=== PATIENT | female | born 1975 | race African-American/Black ===

== ENCOUNTER 2017-09-02 13:35 | Emergency (ER) | payer SELFPAY ==
[~2017-09-02] VITALS: Ht 162.6 cm; Wt 67.0 kg
[2017-09-02 13:37] VITALS: BP 113/71
== END 2017-09-02 18:52 | disposition left against medical advice (07) ==
LOC: ER 13:35
DX: M54.9 Dorsalgia, unspecified (principal); Z53.21 Procedure and treatment not carried out due to patient leaving prior to being seen by health care provider

== ENCOUNTER 2020-05-20 12:06 | Emergency (ER) | payer MEDICAID ==
[~2020-05-20] VITALS: Ht 162.6 cm; Wt 59.0 kg
[2020-05-20] MEDS ORDERED: SODIUM CHLORIDE 0.9% 1,000 ML IV ONE (12:49)
[2020-05-20 13:49] VITALS: BP 128/75
[2020-05-20 14:00] LABS: BASOPHILS % 1.1 % (0.0-2.0); EOSINOPHILS % 0.7 % (0.0-5.0); HEMATOCRIT. 40.3 % (36.0-48.0); HEMOGLOBIN. 13.5 g/dL (12.0-16.0); LYMPHOCYTES % 23.9 % (20.0-50.0); MEAN CORPUSCULAR HEMOGLOBIN 30.5 pg (28.0-32.0); MEAN CORPUSCULAR VOLUME 91.2 fL (81.0-99.0); MEAN PLATELET VOLUME 10.2 fl (7.4-10.4); MONOCYTES % 4.4 % (2.0-8.0); NEUTROPHILS % 69.9 % (40.0-76.0); PLATELET 270 x1000/uL (130-400); RED BLOOD CELL COUNT 4.42 mill/uL (4.2-5.4); RED CELL DISTRIBUTION WIDTH 14.6 % (11.6-14.6)
[2020-05-20 14:03] LABS: CHLORIDE 108 mEq/L (98-107)
[2020-05-20 14:06] LABS: HCG SCREEN NEGATIVE
[2020-05-20 14:07] LABS: CLARITY URINE CLEAR (CLEAR); COLOR URINE YELLOW (YELLOW); KETONES URINE NEGATIVE (NEGATIVE); LEUKOCYTE ESTERASE URINE NEGATIVE (NEGATIVE); NITRITE URINE NEGATIVE (NEGATIVE); OCCULT BLOOD URINE 3+ (NEGATIVE); PH URINE 7.5 (4.5-8.0); PROTEIN URINE NEGATIVE (NEGATIVE); SPECIFIC GRAVITY URINE 1.007 (1.005-1.030); UROBILINOGEN URINE 0.2 E.U./dL (0.2-1.0)
== END 2020-05-20 13:52 | disposition home or self-care (01) ==
LOC: ER 12:06
DX: R55 Syncope and collapse (principal); R53.1 Weakness; R51 Headache; D64.9 Anemia, unspecified
CPT/HCPCS: 36415; 80053; 81003; 84484; 84703; 85025; 86850; 86900; 86901; 93005; 99284; J7030; 99285

== ENCOUNTER 2020-05-21 04:26 | Emergency (ER) | payer MEDICAID ==
[~2020-05-21] VITALS: Ht 160 cm; Wt 64.0 kg
[2020-05-21 04:33] VITALS: BP 121/78
== END 2020-05-21 05:03 | disposition left against medical advice (07) ==
LOC: ER 04:26
DX: Z53.21 Procedure and treatment not carried out due to patient leaving prior to being seen by health care provider (principal)

== ENCOUNTER 2020-05-21 22:18 | Emergency (ER) | payer MEDICAID ==
[~2020-05-21] VITALS: Ht 162.6 cm; Wt 66.4 kg
[2020-05-22] MEDS ORDERED: DIPHENHYDRAMINE 25MG CAPSULE PO ONE
[2020-05-22] MEDS ORDERED: PREDNISONE 20MG TABLET PO ONE
[2020-05-22] MEDS ORDERED: FAMOTIDINE 20MG TABLET PO ONE
[2020-05-22 00:29] VITALS: BP 104/75
== END 2020-05-22 00:30 | disposition home or self-care (01) ==
LOC: ER 22:18
DX: T78.40XA Allergy, unspecified, initial encounter (principal); X58.XXXA Exposure to other specified factors, initial encounter; F17.200 Nicotine dependence, unspecified, uncomplicated
CPT/HCPCS: 99284; J7512; Q0163

== ENCOUNTER 2020-05-29 07:12 | Emergency (ER) | payer MEDICAID ==
[~2020-05-29] VITALS: Ht 160 cm; Wt 62.0 kg
[2020-05-29] MEDS ORDERED: SODIUM CHLORIDE 0.9% 1,000 ML IV ONE (07:55)
[2020-05-29] MEDS ORDERED: ONDANSETRON HCL 4MG/2ML INJ IV STA (07:55)
[2020-05-29] MEDS ORDERED: KETOROLAC 30MG/ML VIAL IV ONE (08:00)
[2020-05-29 08:34] LABS: BASOPHILS % 0.8 % (0.0-2.0); CLARITY URINE CLEAR (CLEAR); COLOR URINE YELLOW (YELLOW); EOSINOPHILS % 1.2 % (0.0-5.0); HEMATOCRIT. 43.2 % (36.0-48.0); HEMOGLOBIN. 14.6 g/dL (12.0-16.0); KETONES URINE NEGATIVE (NEGATIVE); LEUKOCYTE ESTERASE URINE NEGATIVE (NEGATIVE); LYMPHOCYTES % 39.3 % (20.0-50.0); MEAN CORPUSCULAR HEMOGLOBIN 30.7 pg (28.0-32.0); MEAN CORPUSCULAR VOLUME 90.7 fL (81.0-99.0); MEAN PLATELET VOLUME 9.7 fl (7.4-10.4); MONOCYTES % 4.6 % (2.0-8.0); NEUTROPHILS % 54.1 % (40.0-76.0); NITRITE URINE NEGATIVE (NEGATIVE); OCCULT BLOOD URINE TRACE (NEGATIVE); PLATELET 358 x1000/uL (130-400); PROTEIN URINE NEGATIVE (NEGATIVE); RED BLOOD CELL COUNT 4.77 mill/uL (4.2-5.4); RED CELL DISTRIBUTION WIDTH 14.5 % (11.6-14.6); SPECIFIC GRAVITY URINE 1.016 (1.005-1.030); UROBILINOGEN URINE 0.2 E.U./dL (0.2-1.0)
[2020-05-29 08:50] LABS: CHLORIDE 104 mEq/L (98-107)
[2020-05-29 09:00] LABS: HCG SCREEN NEGATIVE
[2020-05-29] MEDS ORDERED: ACETAMINOPHEN WITH CODEINE 300/30MG TABLET PO ONE (09:30)
[2020-05-29 11:02] VITALS: BP 122/78
== END 2020-05-29 11:04 | disposition home or self-care (01) ==
LOC: ER 07:12
DX: R42 Dizziness and giddiness (principal); R53.1 Weakness; Z20.828 Contact with and (suspected) exposure to other viral communicable diseases
CPT/HCPCS: 36415; 70450; 71045; 80053; 81003; 81025; 84703; 85025; 93005; 96361; 96374; 96375; 99285; C9803; J1885; J2405; J7030; U0003

== ENCOUNTER 2020-06-17 20:02 | Inpatient (IN) | payer MEDICAID ==
[~2020-06-17] VITALS: Ht 160 cm; Wt 69.9 kg
[2020-06-17] MEDS ORDERED: ASPIRIN 81MG TABLET PO ONE (21:45)
[2020-06-17 22:02] LABS: EOSINOPHILS % 1.8 % (0.0-5.0); HEMOGLOBIN. 13.2 g/dL (12.0-16.0); LYMPHOCYTES % 49.1 % (20.0-50.0); MEAN CORPUSCULAR HEMOGLOBIN 30.2 pg (28.0-32.0); MEAN CORPUSCULAR VOLUME 89.5 fL (81.0-99.0); MEAN PLATELET VOLUME 8.8 fl (7.4-10.4); MONOCYTES % 5.7 % (2.0-8.0); NEUTROPHILS % 42.4 % (40.0-76.0); PLATELET 354 x1000/uL (130-400); RED BLOOD CELL COUNT 4.36 mill/uL (4.2-5.4); RED CELL DISTRIBUTION WIDTH 14.9 % (11.6-14.6)
[2020-06-17 22:07] LABS: CHLORIDE 105 mEq/L (98-107)
[2020-06-17 22:10] LABS: HCG SCREEN NEGATIVE
[2020-06-17 22:11] LABS: D-DIMER 0.57 mg/L FEU (<0.50); INR 0.9; PARTIAL THROMBOPLASTIN TIME 27.2 sec (23.4-31.0)
[2020-06-17] MEDS ORDERED: ACETAMINOPHEN 325MG TABLET PO ONE (22:15)
[2020-06-17] MEDS ORDERED: IOHEXOL-350 100 ML BOTTLE ONE (23:14)
[2020-06-17] MEDS ORDERED: AMPICILLIN SOD/SULBACTAM NA 3 G in SODIUM CHLORIDE 0.9% 100 ML IV STA (23:16)
[2020-06-18] VITALS (8 sets, daily range): BP systolic 100–143; BP diastolic 58–80
[2020-06-18] MEDS ORDERED: SODIUM CHLORIDE 0.9% 1,000 ML IV ONE (00:12)
[2020-06-18] MEDS ORDERED: DOCUSATE SODIUM 100MG CAPSULE PO PRN (04:30)
[2020-06-18] MEDS ORDERED: GUAIFENESIN 200MG/10ML SUGAR FREE UDC PO PRN (04:30)
[2020-06-18] MEDS ORDERED: ONDANSETRON HCL 4MG/2ML INJ IV PRN (04:30)
[2020-06-18] MEDS ORDERED: MAGNESIUM/ALUMINUM HYDROXIDE/SIMETHICONE 30ML UDC PO PRN (04:30)
[2020-06-18] MEDS ORDERED: HYDROCODONE/ACETAMINOPHEN 5/325MG TABLET PO PRN (04:30)
[2020-06-18] MEDS ORDERED: CLONIDINE 0.1MG TABLET PO PRN (04:30)
[2020-06-18 08:15] LABS: CREATINE KINASE 46 IU/L (26-192); CREATINE KINASE MB FRACTION < 1.0 ng/mL (0.5-3.6)
[2020-06-18] MEDS: METOPROLOL TARTRATE 25MG TABLET PO SCH ×2 (09:00→20:49)
[2020-06-18] MEDS: ASPIRIN 81MG EC TABLET PO SCH (09:08)
[2020-06-18] MEDS: ENOXAPARIN 40MG/0.4ML SYR SUBCUT SCH (10:57)
[2020-06-18 13:09] LABS: T4 FREE 1.05 ng/dL (0.76-1.46)
[2020-06-18 15:44] LABS: CREATINE KINASE 46 IU/L (26-192); CREATINE KINASE MB FRACTION < 1.0 ng/mL (0.5-3.6)
[2020-06-19] VITALS (9 sets, daily range): BP systolic 95–114; BP diastolic 58–77
[2020-06-19 06:58] LABS: BASOPHILS % 0.7 % (0.0-2.0); EOSINOPHILS % 1.5 % (0.0-5.0); HEMATOCRIT. 35.8 % (36.0-48.0); LYMPHOCYTES % 42.1 % (20.0-50.0); MEAN CORPUSCULAR HEMOGLOBIN 30.3 pg (28.0-32.0); MEAN CORPUSCULAR VOLUME 90.2 fL (81.0-99.0); MEAN PLATELET VOLUME 8.7 fl (7.4-10.4); MONOCYTES % 7.5 % (2.0-8.0); NEUTROPHILS % 48.2 % (40.0-76.0); PLATELET 317 x1000/uL (130-400); RED BLOOD CELL COUNT 3.97 mill/uL (4.2-5.4); RED CELL DISTRIBUTION WIDTH 14.6 % (11.6-14.6)
[2020-06-19 07:19] LABS: CHLORIDE 108 mEq/L (98-107)
[2020-06-19 07:35] LABS: LDL CHOLESTEROL 166 mg/dL (5-100)
[2020-06-19 07:37] LABS: HDL CHOLESTEROL 50 mg/dL (40-59)
[2020-06-19] MEDS: METOPROLOL TARTRATE 25MG TABLET PO SCH (09:00)
[2020-06-19] MEDS: ASPIRIN 81MG EC TABLET PO SCH (09:25)
[2020-06-19] MEDS: ENOXAPARIN 40MG/0.4ML SYR SUBCUT SCH ×2 (09:28→09:34)
[2020-06-19] MEDS ORDERED: ATORVASTATIN CALCIUM 40MG TABLET PO SCH (21:00)
== END 2020-06-19 15:03 | disposition home or self-care (01) | DRG 207 ==
LOC: ER 20:02 → MICUSO 23:34 → 3WST 06-18 09:26
PROVIDERS: ADMIT Hospitalist; ATTEND Hospitalist
DX: R00.2 Palpitations (principal); R53.1 Weakness; E78.5 Hyperlipidemia, unspecified; F17.200 Nicotine dependence, unspecified, uncomplicated; R07.89 Other chest pain; E78.41 Elevated Lipoprotein(a)
CPT/HCPCS: 36415; 71045; 71275; 80053; 80061; 82550; 82553; 83036; 83880; 84439; 84443; 84484; 84703; 85025; 85379; 93005; 93306; 93970; 99285; J0295; J1650; J7030; J7050; Q9967

== ENCOUNTER 2020-08-11 12:28 | Emergency (ER) | payer MEDICAID ==
[~2020-08-11] VITALS: Ht 160 cm; Wt 66.0 kg
[2020-08-11 14:00] LABS: BASOPHILS % 1.1 % (0.0-2.0); EOSINOPHILS % 1.5 % (0.0-5.0); HEMATOCRIT. 39.5 % (36.0-48.0); HEMOGLOBIN. 13.3 g/dL (12.0-16.0); MEAN CORPUSCULAR HEMOGLOBIN 30.6 pg (28.0-32.0); MEAN PLATELET VOLUME 9.7 fl (7.4-10.4); MONOCYTES % 4.5 % (2.0-8.0); NEUTROPHILS % 44.9 % (40.0-76.0); PLATELET 284 x1000/uL (130-400); RED BLOOD CELL COUNT 4.34 mill/uL (4.2-5.4); RED CELL DISTRIBUTION WIDTH 14.3 % (11.6-14.6)
[2020-08-11 14:03] LABS: CHLORIDE 105 mEq/L (98-107)
[2020-08-11] MEDS ORDERED: IBUPROFEN 400MG TABLET PO ONE (15:00)
[2020-08-11 15:04] VITALS: BP 121/71
== END 2020-08-11 16:43 | disposition home or self-care (01) ==
LOC: ER 12:59
DX: R53.1 Weakness (principal); E78.00 Pure hypercholesterolemia, unspecified
CPT/HCPCS: 36415; 71045; 80053; 81025; 82550; 83880; 84443; 84484; 85025; 93005; 99285

== ENCOUNTER 2020-11-12 15:04 | Emergency (ER) | payer MEDICAID ==
[~2020-11-12] VITALS: Ht 162.6 cm; Wt 74.0 kg
[2020-11-12] MEDS ORDERED: ACETAMINOPHEN 325MG TABLET PO ONE (19:45)
[2020-11-13 01:24] LABS: CHLORIDE 103 mEq/L (98-107)
[2020-11-13 01:28] LABS: PROTHROMBIN TIME 10.6 sec (9.6-11.0)
[2020-11-13 01:34] LABS: BASOPHILS % 0.9 % (0.0-2.0); EOSINOPHILS % 2.1 % (0.0-5.0); HEMATOCRIT. 40.7 % (36.0-48.0); HEMOGLOBIN. 13.4 g/dL (12.0-16.0); LYMPHOCYTES % 47.2 % (20.0-50.0); MEAN CORPUSCULAR HEMOGLOBIN 29.3 pg (28.0-32.0); MEAN CORPUSCULAR VOLUME 89.1 fL (81.0-99.0); MEAN PLATELET VOLUME 9.7 fl (7.4-10.4); MONOCYTES % 6.6 % (2.0-8.0); NEUTROPHILS % 43.2 % (40.0-76.0); PLATELET 304 x1000/uL (130-400); RED BLOOD CELL COUNT 4.56 mill/uL (4.2-5.4); RED CELL DISTRIBUTION WIDTH 13.8 % (11.6-14.6)
[2020-11-13 04:48] LABS: CLARITY URINE CLEAR (CLEAR); COLOR URINE YELLOW (YELLOW); KETONES URINE NEGATIVE (NEGATIVE); LEUKOCYTE ESTERASE URINE NEGATIVE (NEGATIVE); NITRITE URINE NEGATIVE (NEGATIVE); OCCULT BLOOD URINE NEGATIVE (NEGATIVE); PROTEIN URINE NEGATIVE (NEGATIVE); SPECIFIC GRAVITY URINE 1.019 (1.005-1.030)
[2020-11-13 05:46] VITALS: BP 120/80
== END 2020-11-13 05:48 | disposition home or self-care (01) ==
LOC: ER 15:04
DX: K59.00 Constipation, unspecified (principal)
CPT/HCPCS: 36415; 80053; 81003; 85025; 93005; 99284

== ENCOUNTER 2020-12-20 18:18 | Emergency (ER) | payer MEDICAID ==
[~2020-12-20] VITALS: Ht 160 cm; Wt 72.0 kg
[2020-12-20 18:31] VITALS: BP 150/78
[2020-12-20] MEDS ORDERED: VISCOUS LIDOCAINE 2% 15 ML UDC PO ONE (20:00)
[2020-12-20] MEDS ORDERED: MAGNESIUM/ALUMINUM HYDROXIDE/SIMETHICONE 30ML UDC PO ONE (20:00)
[2020-12-20 20:43] LABS: BASOPHILS % 1.4 % (0.0-2.0); EOSINOPHILS % 3.2 % (0.0-5.0); HEMATOCRIT. 39.1 % (36.0-48.0); LYMPHOCYTES % 55.3 % (20.0-50.0); MEAN CORPUSCULAR HEMOGLOBIN 29.3 pg (28.0-32.0); MEAN PLATELET VOLUME 9.6 fl (7.4-10.4); MONOCYTES % 6.7 % (2.0-8.0); NEUTROPHILS % 33.4 % (40.0-76.0); PLATELET 325 x1000/uL (130-400); RED BLOOD CELL COUNT 4.44 mill/uL (4.2-5.4); RED CELL DISTRIBUTION WIDTH 13.8 % (11.6-14.6)
[2020-12-20 20:47] LABS: CHLORIDE 109 mEq/L (98-107)
[2020-12-20] MEDS ORDERED: FAMO-135 MT (21:24)
== END 2020-12-20 21:40 | disposition home or self-care (01) ==
LOC: ER 18:27
DX: K21.9 Gastro-esophageal reflux disease without esophagitis (principal); R07.89 Other chest pain; E78.00 Pure hypercholesterolemia, unspecified
CPT/HCPCS: 36415; 71045; 80053; 84484; 85025; 93005; 99285

== ENCOUNTER 2021-02-01 16:11 | Emergency (ER) | payer MEDICAID ==
[~2021-02-01] VITALS: Ht 160 cm; Wt 72.0 kg
[~2021-02-01 16:11] MED LIST: FAMO-135 MT
[2021-02-01] MEDS ORDERED: MAGNESIUM/ALUMINUM HYDROXIDE/SIMETHICONE 30ML UDC PO NR (17:30)
[2021-02-01] MEDS ORDERED: VISCOUS LIDOCAINE 2% 15 ML UDC PO NR (17:30)
[2021-02-01 18:34] LABS: BASOPHILS % 1.3 % (0.0-2.0); HEMATOCRIT. 40.9 % (36.0-48.0); HEMOGLOBIN. 13.3 g/dL (12.0-16.0); LYMPHOCYTES % 53.4 % (20.0-50.0); MEAN CORPUSCULAR VOLUME 86.2 fL (81.0-99.0); MEAN PLATELET VOLUME 9.7 fl (7.4-10.4); MONOCYTES % 5.8 % (2.0-8.0); NEUTROPHILS % 37.5 % (40.0-76.0); PLATELET 302 x1000/uL (130-400); RED BLOOD CELL COUNT 4.75 mill/uL (4.2-5.4); RED CELL DISTRIBUTION WIDTH 14.4 % (11.6-14.6)
[2021-02-01 18:43] LABS: HCG SCREEN NEGATIVE
[2021-02-01 18:44] LABS: CHLORIDE 104 mEq/L (98-107)
[2021-02-01] MEDS ORDERED: OMEP20CA14 MT (19:41)
[2021-02-01 19:46] VITALS: BP 113/62
== END 2021-02-01 20:14 | disposition home or self-care (01) ==
LOC: ER 16:11
DX: R07.89 Other chest pain (principal); K21.9 Gastro-esophageal reflux disease without esophagitis; E78.00 Pure hypercholesterolemia, unspecified; F17.290 Nicotine dependence, other tobacco product, uncomplicated
CPT/HCPCS: 36415; 76705; 80053; 84703; 85025; 93005; 99285

== ENCOUNTER 2021-02-25 11:08 | Emergency (ER) | payer MEDICAID ==
[~2021-02-25] VITALS: Ht 160 cm; Wt 58.0 kg
[~2021-02-25 11:08] MED LIST changes: +OMEP20CA14 MT
[2021-02-25 12:20] LABS: CLARITY URINE CLEAR (CLEAR); COLOR URINE YELLOW (YELLOW); KETONES URINE NEGATIVE (NEGATIVE); LEUKOCYTE ESTERASE URINE NEGATIVE (NEGATIVE); NITRITE URINE NEGATIVE (NEGATIVE); OCCULT BLOOD URINE NEGATIVE (NEGATIVE); PH URINE 6.5 (4.5-8.0); PROTEIN URINE NEGATIVE (NEGATIVE); SPECIFIC GRAVITY URINE 1.007 (1.005-1.030); UROBILINOGEN URINE 0.2 E.U./dL (0.2-1.0)
[2021-02-25 12:36] LABS: BASOPHILS % 0.7 % (0.0-2.0); EOSINOPHILS % 1.5 % (0.0-5.0); HEMATOCRIT. 35.9 % (36.0-48.0); HEMOGLOBIN. 12.1 g/dL (12.0-16.0); LYMPHOCYTES % 37.3 % (20.0-50.0); MEAN CORPUSCULAR HEMOGLOBIN 29.2 pg (28.0-32.0); MEAN CORPUSCULAR VOLUME 86.5 fL (81.0-99.0); MEAN PLATELET VOLUME 8.9 fl (7.4-10.4); MONOCYTES % 4.8 % (2.0-8.0); NEUTROPHILS % 55.7 % (40.0-76.0); PLATELET 360 x1000/uL (130-400); RED BLOOD CELL COUNT 4.15 mill/uL (4.2-5.4)
[2021-02-25 12:42] LABS: CHLORIDE 105 mEq/L (98-107)
[2021-02-25] MEDS ORDERED: GABA-529 MT (13:29)
[2021-02-25 14:09] VITALS: BP 108/63
== END 2021-02-25 14:11 | disposition home or self-care (01) ==
LOC: ER 11:08
DX: M79.10 Myalgia, unspecified site (principal); K21.9 Gastro-esophageal reflux disease without esophagitis; E78.00 Pure hypercholesterolemia, unspecified
CPT/HCPCS: 36415; 80053; 81003; 81025; 84443; 85025; 93005; 99284; Z7610

== ENCOUNTER 2021-04-29 09:10 | Emergency (ER) | payer MEDICAID ==
[~2021-04-29] VITALS: Ht 160 cm; Wt 77.0 kg
[~2021-04-29 09:10] MED LIST changes: +GABA-529 MT
[2021-04-29] MEDS ORDERED: SODIUM CHLORIDE 0.9% 1,000 ML IV ONE (09:30)
[2021-04-29] MEDS ORDERED: KETOROLAC 30MG/ML VIAL IV STA (09:41)
[2021-04-29 09:53] LABS: BASOPHILS % 1.7 % (0.0-2.0); EOSINOPHILS % 1.4 % (0.0-5.0); HEMATOCRIT. 37.7 % (36.0-48.0); HEMOGLOBIN. 12.4 g/dL (12.0-16.0); LYMPHOCYTES % 38.4 % (20.0-50.0); MEAN CORPUSCULAR HEMOGLOBIN 27.9 pg (28.0-32.0); MEAN CORPUSCULAR VOLUME 84.8 fL (81.0-99.0); MEAN PLATELET VOLUME 9.5 fl (7.4-10.4); MONOCYTES % 3.9 % (2.0-8.0); NEUTROPHILS % 54.6 % (40.0-76.0); PLATELET 343 x1000/uL (130-400); RED BLOOD CELL COUNT 4.45 mill/uL (4.2-5.4); RED CELL DISTRIBUTION WIDTH 15.2 % (11.6-14.6)
[2021-04-29 10:02] LABS: CHLORIDE 105 mEq/L (98-107)
[2021-04-29 10:15] LABS: HCG SCREEN NEGATIVE
[2021-04-29 10:21] LABS: *AMPHETAMINES SCREEN URINE NEGATIVE (NEGATIVE); *BARBITURATES SCREEN URINE NEGATIVE (NEGATIVE)
[2021-04-29 10:22] LABS: *BENZODIAZEPINES SCREEN URINE NEGATIVE (NEGATIVE); *COCAINE SCREEN URINE NEGATIVE (NEGATIVE); METHADONE URINE SCREEN NEGATIVE (NEGATIVE); PHENCYCLIDINE URINE SCREEN NEGATIVE (NEGATIVE)
[2021-04-29 10:23] LABS: OPIATES URINE SCREEN NEGATIVE (NEGATIVE)
[2021-04-29 10:29] LABS: CANNABINOID URINE SCREEN NEGATIVE (NEGATIVE)
[2021-04-29] MEDS ORDERED: IBUP-2029 MT (12:58)
[2021-04-29] MEDS ORDERED: GUAI600T26 MT (12:58)
[2021-04-29 13:50] VITALS: BP 104/63
== END 2021-04-29 13:52 | disposition home or self-care (01) ==
LOC: ER 09:10
DX: R07.9 Chest pain, unspecified (principal); R09.89 Other specified symptoms and signs involving the circulatory and respiratory systems; K21.9 Gastro-esophageal reflux disease without esophagitis; E78.00 Pure hypercholesterolemia, unspecified; I10 Essential (primary) hypertension
CPT/HCPCS: 36415; 71045; 78582; 80053; 80305; 81025; 84484; 84703; 85025; 85379; 93005; 93970; 96361; 96374; 99285; A9540; A9558; J1885; J7030

== ENCOUNTER 2021-09-27 22:20 | Emergency (ER) | payer MEDICAID ==
[~2021-09-27] VITALS: Ht 162.6 cm; Wt 77.0 kg
[~2021-09-27 22:20] MED LIST changes: +ATOR10TA MT; +FERR325T23 MT; +GUAI600T26 MT; +IBUP-2029 MT; +METO25TA6 PO
[2021-09-28] MEDS ORDERED: DICYCLOMINE 10 MG/5 ML ORAL SYR PO ONE (05:45)
[2021-09-28] MEDS ORDERED: MAGNESIUM/ALUMINUM HYDROXIDE/SIMETHICONE 30ML UDC PO ONE (05:45)
[2021-09-28] MEDS ORDERED: SODIUM CHLORIDE 0.9% 1,000 ML IV ONE (05:45)
[2021-09-28] MEDS ORDERED: VISCOUS LIDOCAINE 2% 15 ML UDC PO ONE (05:45)
[2021-09-28 06:07] LABS: HEMATOCRIT 43.3 % (36.0-48.0); HEMOGLOBIN 14.3 g/dL (12.0-16.0); MEAN CORPUSCULAR HEMOGLOBIN 29.5 pg (28.0-32.0); MEAN CORPUSCULAR VOLUME 89.3 fL (81.0-99.0); PLATELET 330 x1000/uL (130-400); RED BLOOD CELL COUNT 4.85 mill/uL (4.2-5.4); RED CELL DISTRIBUTION WIDTH 14.2 % (11.6-14.6)
[2021-09-28 06:12] LABS: CHLORIDE 106 mEq/L (98-107)
[2021-09-28] MEDS ORDERED: OMEP20CA14 MT (06:56)
[2021-09-28 07:03] VITALS: BP 136/81
== END 2021-09-28 07:08 | disposition home or self-care (01) ==
LOC: ER 22:20
DX: K21.9 Gastro-esophageal reflux disease without esophagitis (principal); E78.00 Pure hypercholesterolemia, unspecified; K58.9 Irritable bowel syndrome, unspecified
CPT/HCPCS: 36415; 71045; 80053; 84484; 85027; 93005; 99285; J7030

== ENCOUNTER 2021-10-15 14:54 | Emergency (ER) | payer MEDICAID ==
[~2021-10-15] VITALS: Ht 162.6 cm; Wt 77.0 kg
[2021-10-15 16:49] LABS: BASOPHILS % 0.7 % (0.0-2.0); EOSINOPHILS % 3.1 % (0.0-5.0); HEMATOCRIT. 43.1 % (36.0-48.0); LYMPHOCYTES % 49.6 % (20.0-50.0); MEAN CORPUSCULAR HEMOGLOBIN 29.1 pg (28.0-32.0); MEAN CORPUSCULAR VOLUME 89.5 fL (81.0-99.0); MONOCYTES % 6.4 % (2.0-8.0); NEUTROPHILS % 40.2 % (40.0-76.0); PLATELET 331 x1000/uL (130-400); RED BLOOD CELL COUNT 4.82 mill/uL (4.2-5.4); RED CELL DISTRIBUTION WIDTH 14.4 % (11.6-14.6)
[2021-10-15 16:58] LABS: CHLORIDE 104 mEq/L (98-107)
[2021-10-15 19:00] VITALS: BP 114/68
== END 2021-10-15 21:28 | disposition home or self-care (01) ==
LOC: ER 14:54
DX: R10.9 Unspecified abdominal pain (principal); Z87.11 Personal history of peptic ulcer disease; K21.9 Gastro-esophageal reflux disease without esophagitis
CPT/HCPCS: 36415; 76705; 80053; 85025; 93005; 99285

== ENCOUNTER 2021-10-18 23:14 | Emergency (ER) | payer MEDICAID ==
[~2021-10-18] VITALS: Ht 162.6 cm; Wt 77.0 kg
[2021-10-18] MEDS ORDERED: HYDROCODONE/ACETAMINOPHEN 5/325MG TABLET PO STA (23:59)
[2021-10-19 00:38] LABS: BASOPHILS % 0.9 % (0.0-2.0); EOSINOPHILS % 3.2 % (0.0-5.0); HEMATOCRIT. 39.7 % (36.0-48.0); HEMOGLOBIN. 13.2 g/dL (12.0-16.0); LYMPHOCYTES % 38.9 % (20.0-50.0); MEAN CORPUSCULAR HEMOGLOBIN 29.4 pg (28.0-32.0); MEAN CORPUSCULAR VOLUME 88.2 fL (81.0-99.0); MEAN PLATELET VOLUME 9.4 fl (7.4-10.4); MONOCYTES % 4.9 % (2.0-8.0); NEUTROPHILS % 52.1 % (40.0-76.0); PLATELET 298 x1000/uL (130-400); RED CELL DISTRIBUTION WIDTH 13.9 % (11.6-14.6)
[2021-10-19 00:48] LABS: CHLORIDE 108 mEq/L (98-107)
[2021-10-19] MEDS ORDERED: IBUP-2029 MT (03:03)
[2021-10-19] MEDS ORDERED: BACL-141 MT (03:03)
[2021-10-19 03:31] VITALS: BP 144/58
== END 2021-10-19 03:31 | disposition home or self-care (01) ==
LOC: ER 23:14
DX: R07.89 Other chest pain (principal); K21.9 Gastro-esophageal reflux disease without esophagitis; E78.00 Pure hypercholesterolemia, unspecified; Z79.899 Other long term (current) drug therapy
CPT/HCPCS: 36415; 71045; 80053; 84484; 85025; 93005; 99285

== ENCOUNTER 2021-12-19 07:16 | Emergency (ER) | payer MEDICAID ==
[~2021-12-19] VITALS: Ht 162.6 cm; Wt 77.0 kg
[~2021-12-19 07:16] MED LIST changes: +BACL-141 MT
[2021-12-19] MEDS ORDERED: DIPHENHYDRAMINE 12.5MG/5ML UDC PO ONE (08:30)
[2021-12-19] MEDS ORDERED: VISCOUS LIDOCAINE 2% 15 ML UDC PO ONE (08:30)
[2021-12-19] MEDS ORDERED: XLV MT (09:53)
[2021-12-19] MEDS ORDERED: [UNRECOGNIZED DRUG - CODE] MM (09:53)
[2021-12-19 10:07] VITALS: BP 132/70
[2021-12-20] MEDS ORDERED: CETI10TA6 PO (11:01)
[2021-12-20] MEDS ORDERED: NAPR-681 PO (11:01)
[2021-12-20] MEDS ORDERED: FLUT9.9S BOTHNSTRLS (11:01)
== END 2021-12-19 10:26 | disposition home or self-care (01) ==
LOC: ER 07:27
DX: B08.4 Enteroviral vesicular stomatitis with exanthem (principal); K21.9 Gastro-esophageal reflux disease without esophagitis; E78.00 Pure hypercholesterolemia, unspecified; Z87.891 Personal history of nicotine dependence
CPT/HCPCS: 87070; 87430; 99283; Q0163

== ENCOUNTER 2021-12-20 10:14 | Emergency (ER) | payer MEDICAID ==
[~2021-12-20] VITALS: Ht 162.6 cm; Wt 77.0 kg
[~2021-12-20 10:14] MED LIST changes: +XLV MT; +[UNRECOGNIZED DRUG - CODE] MM
[2021-12-20] MEDS ORDERED: IBUPROFEN 600MG TABLET PO STA (10:37)
[2021-12-20] MEDS ORDERED: CETI10TA6 PO (11:01)
[2021-12-20] MEDS ORDERED: NAPR-681 PO (11:01)
[2021-12-20] MEDS ORDERED: FLUT9.9S BOTHNSTRLS (11:01)
[2021-12-20 11:18] VITALS: BP 109/59
== END 2021-12-20 11:21 | disposition home or self-care (01) ==
LOC: ER 10:14
DX: J02.9 Acute pharyngitis, unspecified (principal); H69.82 Other specified disorders of Eustachian tube, left ear; K21.9 Gastro-esophageal reflux disease without esophagitis; E78.00 Pure hypercholesterolemia, unspecified; Z79.899 Other long term (current) drug therapy
CPT/HCPCS: 99283

== ENCOUNTER 2022-01-09 06:39 | Emergency (ER) | payer MEDICAID ==
[~2022-01-09] VITALS: Ht 162.6 cm; Wt 78.0 kg
[~2022-01-09 06:39] MED LIST changes: +CETI10TA6 PO; +FLUT9.9S BOTHNSTRLS; +NAPR-681 PO
[2022-01-09] MEDS ORDERED: METHOCARBAMOL 750MG TABLET PO SCH (07:15)
[2022-01-09] MEDS ORDERED: LIDOCAINE 5% PATCH TOP SCH (07:15)
[2022-01-09] MEDS ORDERED: KETOROLAC 60MG/2ML VIAL IM ONE (07:15)
[2022-01-09 07:41] VITALS: BP 117/74
== END 2022-01-09 08:46 | disposition left against medical advice (07) ==
LOC: ER 06:39
DX: M54.6 Pain in thoracic spine (principal); K21.9 Gastro-esophageal reflux disease without esophagitis; E78.00 Pure hypercholesterolemia, unspecified
CPT/HCPCS: 71046; 72070; 96372; 99284; J1885

== ENCOUNTER 2022-02-06 11:08 | Emergency (ER) | payer MEDICAID ==
[~2022-02-06] VITALS: Ht 162.6 cm; Wt 77.0 kg
[2022-02-06] MEDS ORDERED: SODIUM CHLORIDE 0.9% 1,000 ML IV ONE (11:30)
[2022-02-06] MEDS ORDERED: KETOROLAC 30MG/ML VIAL IV ONE (11:30)
[2022-02-06 11:38] LABS: BASOPHILS % 1.2 % (0.0-2.0); EOSINOPHILS % 3.9 % (0.0-5.0); HEMATOCRIT. 41.5 % (36.0-48.0); HEMOGLOBIN. 13.7 g/dL (12.0-16.0); LYMPHOCYTES % 50.5 % (20.0-50.0); MEAN CORPUSCULAR HEMOGLOBIN 28.8 pg (28.0-32.0); MEAN CORPUSCULAR VOLUME 87.7 fL (81.0-99.0); MEAN PLATELET VOLUME 9.5 fl (7.4-10.4); MONOCYTES % 4.4 % (2.0-8.0); PLATELET 348 x1000/uL (130-400); RED BLOOD CELL COUNT 4.74 mill/uL (4.2-5.4); RED CELL DISTRIBUTION WIDTH 13.7 % (11.6-14.6)
[2022-02-06 11:47] LABS: CHLORIDE 103 mEq/L (98-107)
[2022-02-06 11:51] LABS: ETHANOL BLOOD < 10 mg/dL
[2022-02-06 11:55] LABS: CREATINE KINASE 77 IU/L (26-192)
[2022-02-06 12:04] LABS: CLARITY URINE CLEAR (CLEAR); COLOR URINE YELLOW (YELLOW); KETONES URINE 1+ (NEGATIVE); LEUKOCYTE ESTERASE URINE NEGATIVE (NEGATIVE); NITRITE URINE NEGATIVE (NEGATIVE); OCCULT BLOOD URINE 1+ (NEGATIVE); PH URINE 6.5 (4.5-8.0); PROTEIN URINE NEGATIVE (NEGATIVE); SPECIFIC GRAVITY URINE 1.016 (1.005-1.030)
[2022-02-06 12:15] LABS: HCG SCREEN NEGATIVE
[2022-02-06] MEDS ORDERED: POTASSIUM CHLORIDE 20MEQ TABLET SR PO ONE (12:15)
[2022-02-06 12:17] LABS: *AMPHETAMINES SCREEN URINE NEGATIVE (NEGATIVE); METHADONE URINE SCREEN NEGATIVE (NEGATIVE)
[2022-02-06 12:19] LABS: *BARBITURATES SCREEN URINE NEGATIVE (NEGATIVE); *BENZODIAZEPINES SCREEN URINE NEGATIVE (NEGATIVE); *COCAINE SCREEN URINE NEGATIVE (NEGATIVE); CANNABINOID URINE SCREEN NEGATIVE (NEGATIVE); OPIATES URINE SCREEN NEGATIVE (NEGATIVE); PHENCYCLIDINE URINE SCREEN NEGATIVE (NEGATIVE)
[2022-02-06] MEDS ORDERED: LORAZEPAM 0.5MG TABLET PO ONE (13:00)
[2022-02-06] MEDS ORDERED: LORA-249 MT (13:21)
[2022-02-06] MEDS ORDERED: FAMO-135 MT (13:21)
[2022-02-06] MEDS ORDERED: ONDA4TAB11 PO (13:21)
[2022-02-06 14:24] VITALS: BP 117/68
== END 2022-02-06 14:28 | disposition home or self-care (01) ==
LOC: ER 11:16
DX: R07.89 Other chest pain (principal)
CPT/HCPCS: 36415; 71045; 80053; 80305; 80320; 81003; 82550; 83690; 84484; 84703; 85025; 93005; 96361; 96374; 99285; J1885; J7030; G0480

== ENCOUNTER 2022-06-14 07:39 | Emergency (ER) | payer MEDICAID, OTHER ==
[~2022-06-14] VITALS: Ht 162.6 cm; Wt 79.0 kg
[~2022-06-14 07:39] MED LIST changes: +LORA-249 MT; +ONDA4TAB11 PO
[2022-06-14] MEDS ORDERED: IBUPROFEN 800MG TABLET PO ONE (10:30)
[2022-06-14] MEDS ORDERED: IBUP-2030 MT (11:07)
[2022-06-14 11:45] VITALS: BP 115/73
== END 2022-06-14 11:45 | disposition home or self-care (01) ==
LOC: ER 07:39
DX: M25.532 Pain in left wrist (principal); M79.645 Pain in left finger(s); X58.XXXA Exposure to other specified factors, initial encounter; Y93.89 Activity, other specified; Y92.013 Bedroom of single-family (private) house as the place of occurrence of the external cause
CPT/HCPCS: 29125; 73110; 73130; 99284